=== PATIENT | female | born 1960 | race Caucasian/White ===

== ENCOUNTER → 2019-01-29 | Outpatient (CLI) | payer OTHER ==
[~2019-01-29] MED LIST: ALBUTEROL2.5 MG/0.5 INH; ALEVE220 MG PO; CHLORTHALIDONE25 MG PO; CIPROFLOXACIN500 M1 PO; CLOBEX59 ML TOP; CLONIDINE0.1 PO; COLACE100 MG PO; DILAUDID 2 MG TA2 MG PO; DULOXETINE HCL30 MG PO; FLEXERIL PO; FLOMAX0.4 MG PO; GRALISE600 MG PO; HYDRALAZINE 2525 MG PO; HYDROXYZINE HCL10 M1 PO; MAG-AL PLUS SUS30 ML PO; MEDROLDOSEPACK PO; MELATONIN3 MG PO; MILK OF MA2400 MG/10 PO; MUCINEX DM ER1 EAC1 PO; MUCINEX FAST-M1 EAC2 PO; MUCINEX PO; MUPIROCIN22 GM TOP; NORCO 5-325 TA1 EACH PO; OCEAN45 ML NS; PROAIR HFA8.5 GM; PROAIR HFA8.5 GM NASAL; PROTONIX40 M1 PO; PULMICORT0.5 MG/2 M IH; SYMBICORT80 MCG/4.5 INH; TRAMADOL 50 MG50 MG PO; XARELTO10 MG PO; [UNRECOGNIZED DRUG - REMARK]
== END ==
LOC: M.PC 14:30
DX: M17.11 Unilateral primary osteoarthritis, right knee (principal); E66.01 Morbid (severe) obesity due to excess calories; J45.909 Unspecified asthma, uncomplicated; Z90.710 Acquired absence of both cervix and uterus; Z88.5 Allergy status to narcotic agent; Z88.1 Allergy status to other antibiotic agents; Z88.0 Allergy status to penicillin; Z88.2 Allergy status to sulfonamides

== ENCOUNTER → 2019-02-12 | Outpatient (CLI) | payer OTHER | END | disposition home or self-care (01) | LOC: M.PC 05:28 | DX: M25.561 Pain in right knee (principal); M17.11 Unilateral primary osteoarthritis, right knee; E66.01 Morbid (severe) obesity due to excess calories; J45.909 Unspecified asthma, uncomplicated; Z90.710 Acquired absence of both cervix and uterus; Z98.890 Other specified postprocedural states; Z87.01 Personal history of pneumonia (recurrent); Z88.0 Allergy status to penicillin; Z88.2 Allergy status to sulfonamides; Z88.8 Allergy status to other drugs, medicaments and biological substances; Z68.43 Body mass index [BMI] 50.0-59.9, adult ==